=== PATIENT | male | born 2000 | race Caucasian/White ===

== ENCOUNTER 2019-03-17 09:20 | Emergency (ER) | payer SELFPAY ==
[~2019-03-17] VITALS: Ht 180.3 cm; Wt 63.5 kg
[2019-03-17 09:28] VITALS: BP 127/74
--- NOTE | 2019-03-17 09:31 | NUR ---
BIBA TO BED 2
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
--- NOTE | 2019-03-17 09:59 | NUR ---
PT TO XRAY VIA W/C
--- NOTE | 2019-03-17 10:37 | NUR ---
PT AMB TO BATHROOM WITH STEADY GAIT
--- NOTE | 2019-03-17 10:46 | NUR ---
PT IN BED, SPEAKING WITH FAMILY MEMBER/FRIEND AT BEDSIDE.
--- NOTE | 2019-03-17 11:06 | NUR ---
DR BROWNLEE SPEAKING WITH PT AT BEDSIDE
[2019-03-17] MEDS ORDERED: IBUPROFEN 800 MG TAB PO ONE (11:25)
--- NOTE | 2019-03-17 11:42 | NUR ---
DCPatient discharged with v/s stable. Written and verbal after care instructions given and explained. Patient alert, oriented and verbalized understanding of instructions. Ambulatory with steady gait. All questions addressed prior to discharge. ID band removed. Patient advised to follow up with PMD. Rx of ROBAXIN AND MOTRIN given. Patient educated on indication of medication including possible reaction and side effects. Opportunity to ask questions provided and answered. Addendum: 03/17/19 at 1144 by VITALIY Patient discharged with v/s stable. Written and verbal after care instructions given and explained. Patient alert, oriented and verbalized understanding of instructions. Ambulatory with steady gait. All questions addressed prior to discharge. ID band removed. Patient advised to follow up with PMD. Rx of ROBAXIN AND MOTRIN given. Patient educated on indication of medication including possible reaction and side effects. Opportunity to ask questions provided and answered.
[2019-03-17 11:43] VITALS: BP 119/63
== END 2019-03-17 11:42 | disposition home or self-care (01) ==
LOC: MED 09:20
DX: S60.211A Contusion of right wrist, initial encounter (principal); S30.0XXA Contusion of lower back and pelvis, initial encounter; R07.89 Other chest pain; V89.2XXA Person injured in unspecified motor-vehicle accident, traffic, initial encounter; Y93.89 Activity, other specified; Y92.89 Other specified places as the place of occurrence of the external cause; Y99.8 Other external cause status
CPT/HCPCS: 71045; 72100; 73110; 99283